=== PATIENT | male | born 1960 | race Caucasian/White ===

== ENCOUNTER 2017-03-23 02:30 | Emergency (ER) | payer BC ==
[~2017-03-23] VITALS: Ht 177.8 cm; Wt 100.8 kg
[2017-03-23 02:30] VITALS: Ht 177.8 cm; Wt 100.8 kg
[~2017-03-23 02:30] MED LIST: BUPR300T33; DICL500C PO; FLUT15.88; LORA10CA3 PO; LORA1TAB3 PO; LOVA20TA PO; OMEP20CA81; PRED20TA PO; SILD50TA PO
--- OUTSIDE RECORDS SUMMARY | 2017-03-23 02:34 | XMS REPORT | Continuity of Care Document ---
Author Author [facility] Organization [facility] Address Unknown Phone Unavailable Care Team Providers Care Spool Fixer Name Role Phone BATSHEVA NUÑEZ MD Primary Care Physician [phone] Insurance Providers Guarantor Efrain Valladares Address [address] [place] [address] Email [email or web address] Policy Number [id number] Subscriber's Name Efrain Valladares Relationship 18 Self Group Number [id number] Chief Complaint and Reason for Visit Chief Complaint Skin Rash/Abscess/Injury Reason for Visit [id number] Problems Active Problems Medical Problem Onset Date Status Ventral hernia, recurrent 10/22/2014 Acute Past Problems Medical Problem Onset Date Hand dermatitis Unknown Medications Current Home Medications Medication Dose Units Route Directions Days Qty Instructions Start Date Bupropion Hcl (Wellbutrin Xl) 300 Mg Tab.sr.24h Daily 10/22 Dicloxacillin Sodium 500 Mg Capsule 1 Cap Oral Four Times Daily 10 Days [address] Pacheco Partida [employer] [facility] [address] [phone] 03/18/17 Fluticasone Propionate 15.8 Ml [place].susp 03/18/17 Loratadine (Claritin) 10 Mg Capsule 1 Cap Oral Daily 10/21/14 Lorazepam 1 Mg Tablet 1 Mg Oral As Needed 10 10/21/14 Lovastatin (Mevacor) 20 Mg Tablet 20 Mg Oral Bedtime Take 1 tablet, by mouth, one time a day (at bedtime). 10/21/14 Omeprazole (Prilosec) 20 Mg Capsule. Daily 10/22/10 Prednisone 20 Mg Tablet 20 Mg Oral Give With Breakfast 36 Tablet Take 3 tablets daily for 6 days then 2 daily for 6 days, 1 daily for [address] Pacheco Partida [employer] [facility] [address] [phone] 03/18/17 Sildenafil Citrate (Viagra) 50 Mg Tablet 50 Mg Oral As Needed Past Home Medications Medication Directions Ordered Status Oxybutynin Chloride (Ditropan) 5 Mg Tablet, Three Times A Day 10/22/10 Discontinued Social History Social History Problem Response Recorded Date/Time Onset Date Status Hx Substance Use No 09/11/2014 11:29am Not Applicable Not Applicable Hx Alcohol Use Y RARELY 10/22/2014 10:36am Not Applicable Not Applicable Has the pt used tobacco in the last 12 months No 10/22/2014 10:36am Not Applicable Not Applicable Hospital Discharge Instructions No hospital discharge instructions. Plan of Care Discharge Date 03/18/17 10:08am Disposition 01 DISCHARGED HOME, SELF-CARE Condition at Discharge Stable Instructions/Education Provided Dermatitis (ED) Prescriptions See Medication Section Referrals BATSHEVA NUÑEZ MD Address: [address] [place] [address] [place] [phone] Additional Instructions/Education Take dicloxacillin as directed. Take prednisone taper as directed. Keep the area clean and dry for now. Follow with Dr. Nuñez in the next week for possible referral to dermatology. Functional Status No functional status results. Allergies, Adverse Reactions, Alerts No known allergies. Immunizations Query Response on File Recorded Date/Time Hx Influenza Vaccination Y AUG 2014 10/22/14 10:36am Hx Pneumococcal Vaccination Y 201110/22/14 10:36am Hx Influenza Vaccination Y AUG 2014 10/22/14 10:36am Influenza Vaccine Hx AUG 2016 03/18/17 9:38am Tetanus Diptheria Vaccine History UP TO DATE 03/18/17 9:38am Vital Signs Acute Vital Signs Vital Response Date/Time Temperature (Fahrenheit) 97.0 deg F (96.8 - 99.1) 03/18/2017 9:34am Temperature (Calculated Celsius) 36.85682 degrees C (36.0 - 37.3) 03/18/2017 9:34am Pulse Rate (adult) 61 bpm (60 - 100) 03/18/2017 9:34am Respiratory Rate 18 breaths/min (10 - 20) 03/18/2017 9:34am O2 Sat by Pulse Oximetry 98 % (90 - 100) 03/18/2017 9:34am Blood Pressure 145/89 mm Hg 03/18/2017 9:34am Height (Inches) 70.00 inches 03/18/2017 9:34am Weight (Kilograms) 101.900 kg 03/18/2017 9:34am Body Mass Index (BMI) 32.0 03/18/2017 9:34am Results No known relevant diagnostic tests, laboratory data and/or discharge summary. Procedures No known history of procedures. Encounters Encounter Location Arrival/Admit Date Discharge/Depart Date Attending Provider Departed Emergency Room [facility] 03/18/17 9:31am 03/18/17 10: 08am FRANNY MORALES APRN Recent Diagnosis
--- OUTSIDE RECORDS SUMMARY | 2017-03-23 02:35 | XMS REPORT | Continuity of Care Document ---
Author Author [facility] Organization [facility] Address Unknown Phone Unavailable Allergies Active Description Code Type Severity Reaction Onset Reported/Identified Relationship to Patient Clinical Status Yes No Known Medication Allergies NKMA N/A N/A 05/27/2014 Yes No Known Medication Allergies NKMA N/A N/A 05/27/2014 Medications Problems Date Dx Coded Attending Type Code Diagnosis Diagnosed By 03/16/2015 Final 592.0 CALCULUS OF KIDNEY 03/16/2015 Reason 789.09 ABDOMINAL PAIN, OTHER SPECIFIED SITE; MULTIPLE SITES Procedures Results Test Result Range CBC With Platelet and Differential - 08/21/16 10:45 Absolute Basophils 0.19 10*3 0.00-0.20 Absolute Eosinophils 0.46 10*3 0.00-0.50 Absolute Lymphocytes 2.56 10*3 0.80-3.30 Absolute Monocytes 0.85 10*3 0.30-1.00 Absolute Neutrophils 2.91 10*3 1.90-7.00 Basophils 3 % 0-2 Eosinophils 7 % 0-4 HCT 46.4 % 42.0-52.0 HGB 15.0 g/dL 14.0-18.0 Immature Granulocytes 0.4 % 0.0-1.0 Lymphocytes 37 % 20-46 MCH 26.4 pg 27.0-32.0 MCHC 32.3 g/dL 32.0-36.0 MCV 81.5 fL 82.0-99.0 Monocytes 12 % 4-11 MPV 10.9 fL 8.8-14.8 Neutrophils 42 % 51-75 Platelet Count 314 K/uL 150-400 RBC 5.69 10*6/uL 4.60-6.20 RDW 15.3 % 11.5-14.5 WBC 7.0 K/uL 4.8-10.8 Comprehensive Metabolic Panel (CMP) - 08/21/16 10:45 Albumin 4.2 g/dL 3.5-5.0 Alkaline Phosphatase 93 U/L 40-150 ALT (SGPT) 60 U/L 0-55 Anion Gap 7 NA 3-20 AST (SGOT) 43 U/L 5-34 Bilirubin Total 0.5 mg/dL 0.2-1.2 BUN 14 mg/dL 8-26 Calcium 9.7 mg/dL 8.9-10.5 Chloride 107 mEq/L 99-111 CO2 25 mEq/L 23-31 Creatinine 0.92 mg/dL 0.72-1.25 Globulin 2.4 g/dL 1.8-4.0 Glucose 101 mg/dL 70-99 Potassium 4.8 mEq/L 3.5-5.2 Protein 6.6 g/dL 6.1-7.7 Sodium 139 mEq/L 135-144 Lipid Panel - 08/21/16 10:45 Cardiac Risk 4.3 0.0-5.7 Cholesterol 169 mg/dL 0-199 HDL Cholesterol 39 mg/dL 40-84 LDL Cholesterol 100 mg/dL 0-130 Triglycerides 151 mg/dL 0-149 VLDL Cholesterol 30 mg/dL 0-28 Uric Acid - 08/21/16 10:45 Uric Acid 5.2 mg/dL 3.5-7.2 eGFR - 08/21/16 10:45 eGFR >60 mL/min >60 Hemoglobin A1C - 08/21/16 10:45 Hemoglobin A1C 6.4 % 4.1-5.6 Estimated Average Glucose - 08/21/16 10:45 Estimated Average Glucose 137.0 mg/dL Urinalysis with reflex microscopic - 08/21/16 10:47 Appearance Clear NA Bilirubin Negative NA Negative Blood Negative NA Negative Color Yellow NA Glucose, Urine Negative Negative Ketones Negative Negative Leukocyte Esterase Negative NA Negative Nitrites Negative NA Negative pH 5.5 NA 5.0-8.0 Protein Negative Negative Specific [place] 1.023 NA 1.003-1.030 UA Collection type Voided NA Urobilinogen 1.0 mg/dL <1.0 Encounters ACCT No. Visit Date/Time Discharge Status Pt. Type Provider Facility Loc./Unit Complaint [id number] 10/10/2013 10:33:00 10/10/2013 23 :59:59 CLS Outpatient
--- OUTSIDE RECORDS SUMMARY | 2017-03-23 02:35 | XMS REPORT | Continuity of Care Document ---
Author Author [facility] Organization [facility] Address Unknown Phone Unavailable Support Name Relationship Address Phone BATSHEVA NUÑEZ MD Caregiver [address] [place] [address] [place] [address] [phone] CATALINA HOYOS FACS, MD Caregiver [address] [place] [address] [place] [address] [phone] NEAL VALLADARES Next Of Kin [address] [place] [address] Insurance Providers Payer Name Policy Number Subscriber Name Relationship [facility] [id number] Efrain Valladares 16 Self Advance Directives Directive Response Recorded Date/Time Dr Arana Resuscitation Status Full Code 09/11/14 4:21pm Problems No known problems or medical conditions. Medications Medication Dose Route Sig Days/Qty Instructions Order Date Discontinued Date Status Bupropion Hcl DAILY 10/22/10 Active Sennosides TWICE A DAY 10/22/10 Active Oxybutynin Chloride THREE TIMES A DAY 10/22/10 09/11/14 Discontinued Omeprazole DAILY 10/22/10 Active Simvastatin DAILY 10/22/10 Active Social History Social History Problem Response Recorded Date/Time Smoking Status Never smoker 09/11/2014 11:29am Chewing Tobacco Status No 09/11/2014 11:29am Hx Substance Use No 09/11/2014 11:29am Hx Alcohol Use Y MODERATE 09/11/2014 11:29am Has the pt used tobacco in the last 12 months No 09/11/2014 11:29am Hospital Discharge Instructions No hospital discharge instructions. Plan of Care No plan of care. Functional Status No functional status results. Allergies, Adverse Reactions, Alerts Allergen Type Severity Reaction Status Last Updated No Known Allergies Active 10/22/10 Immunizations Name Given Type Hx Influenza Vaccination Y AUGUST 2014 Historical Hx Pneumococcal Vaccination No Historical Hx Influenza Vaccination Y AUGUST 2014 Historical Vital Signs Acute Vital Signs Vital Response Date/Time Temperature (Fahrenheit) 97.3 deg F (96.8 - 99.1) Temperature (Calculated Celsius) 36.00392 degrees C (36.0 - 37.3) Temperature Source Temporal Pulse Rate (adult) 64 bpm (60 - 100) Respiratory Rate 16 breaths/min (10 - 20) Oxygen Delivery Method Room Air Blood Pressure 127/71 mm Hg Blood Pressure Source Automatic Cuff Height 5 ft 10 in Weight 212 lb Body Mass Index 30.0 kg/m^2 Results No known relevant diagnostic tests, laboratory data and/or discharge summary. Procedures Procedure Status Date Provider(s) Colonoscopy completed 09/14/14 CATALINA HOYOS MD, FACS, CWS
--- OUTSIDE RECORDS SUMMARY | 2017-03-23 02:35 | XMS REPORT | Continuity of Care Document ---
Author Author [facility] Organization [facility] Address Unknown Phone Unavailable Support Name Relationship Address Phone BATSHEVA NUÑEZ MD Caregiver [address] [place] [address] [place] [address] [phone] CATALINA HOYOS FACSS Caregiver [address] [place] [address] [place] [address] [phone] NEAL VALLADARES Next Of Kin [address] [place] [address] Insurance Providers Payer Name Policy Number Subscriber Name Relationship [facility] [id number] Efrain Valladares 18 Self Advance Directives Directive Response Recorded Date/Time Dr Arana Resuscitation Status Full Code 10/21/14 4:09pm Resuscitation Documents on File No 10/22/14 10:32am Problems Medical Problems Problem Onset Date Status Ventral hernia, recurrent 10/22/2014 Active Medications Medication Dose Route Sig Days/Qty Instructions Order Date Discontinued Date Status Bupropion Hcl DAILY 10/22/10 Active Oxybutynin Chloride THREE TIMES A DAY 10/22/10 09/11/14 Discontinued Omeprazole DAILY 10/22/10 Active Lorazepam 1 Mg PO NEEDED 10 Qty 10/21/14 Active Loratadine 1 Cap PO DAILY 10/21/14 Active Lovastatin 20 Mg PO BEDTIME Take 1 tablet, by mouth, one time a day (at bedtime). 10/21/14 Active Triamcinolone Acetonide 2 [place] EA NOSTRIL DAILY 10/21/14 Active Sildenafil Citrate 50 Mg PO NEEDED 10/21/14 Active Hydrocodone/Acetaminophen 1-2 Tab PO EVERY 5 HOURS PRN PAIN 10 Qty Active Social History Social History Problem Response Recorded Date/Time Hx Substance Use No 09/11/2014 11:29am Hx Alcohol Use Y RARELY 10/22/2014 10:36am Has the pt used tobacco in the last 12 months No 10/22/2014 10:36am Query Response Start Date Stop Date Smoking Status Never smoker Hospital Discharge Instructions No hospital discharge instructions. Plan of Care No plan of care. Functional Status Query Response Date Recorded Physical Hygiene Self October 23, 2014 9:16am Disabilities None October 23, 2014 9:16am Devices Used Glasses October 23, 2014 9:16am Dressing Self October 23, 2014 9:16am Ambulation Self October 23, 2014 9:16am Diet Self October 23, 2014 9:16am Mental Status Alert Oriented October 23, 2014 9:16am Disabilities None October 23, 2014 9:16am Devices Used Glasses October 23, 2014 9:16am Physical Hygiene Self October 23, 2014 9:16am Dressing Self October 23, 2014 9:16am Ambulation Self October 23, 2014 9:16am Diet Self October 23, 2014 9:16am Allergies, Adverse Reactions, Alerts Allergen Type Severity Reaction Status Last Updated No Known Allergies Active 10/22/10 Immunizations Name Given Type Hx Influenza Vaccination Y AUG 2014 Historical Hx Pneumococcal Vaccination 2011 Historical Hx Influenza Vaccination Y AUG 2014 Historical Vital Signs Acute Vital Signs Vital Response Date/Time Temperature (Fahrenheit) 99.2 deg F (96.8 - 99.1) Temperature (Calculated Celsius) 37.67910 degrees C (36.0 - 37.3) Temperature Source Temporal Pulse Rate (adult) 69 bpm (60 - 100) Respiratory Rate 16 breaths/min (10 - 20) Height 5 ft 10 in Weight 214 lb Body Mass Index 30.0 kg/m^2 Results Test Source Date Result Interp. Ref. Range Comments Alanine Aminotransferase (ALT/SGPT) October 22, 2014 10:35am 57 U/L N 21-72 Aspartate Amino Transf (AST/SGOT) October 22, 2014 10:35am 33 U/L N 17- 59 Albumin/Globulin Ratio October 22, 2014 10:35am 1.5 RATIO N 1.1-2.2 Globulin October 22, 2014 10:35am 3.0 G/DL N 2.4-3.6 Albumin October 22, 2014 10:35am 4.6 G/DL N 3.5-5.0 Total Protein October 22, 2014 10:35am 7.6 G/DL N 6.3-8.2 Alkaline Phosphatase October 22, 2014 10:35am 104 U/L N 38-126 Total Bilirubin October 22, 2014 10:35am 0.80 MG/DL N 0.20-1.30 Calcium Level October 22, 2014 10:35am 10.0 MG/DL N 8.4-10.2 Calculated Osmolality October 22, 2014 10:35am 275 MOSM/KG N 261-280 Glucose Level October 22, 2014 10:35am 109 MG/DL N 75-110 Glomerular Filtration Rate Calc October 22, 2014 10:35am 63 - BUN/Creatinine Ratio October 22, 2014 10:35am 9 RATIO N 6-26 Creatinine October 22, 2014 10:35am 1.2 MG/DL N 0.8-1.5 Blood Urea Nitrogen October 22, 2014 10:35am 11.0 MG/DL N 9-20 Anion Gap October 22, 2014 10:35am 12 MEQ/L N 5-15 Carbon Dioxide Level October 22, 2014 10:35am 28 MEQ/L N 22-30 Chloride Level October 22, 2014 10:35am 103 MEQ/L N 98-107 Potassium Level October 22, 2014 10:35am 4.6 MEQ/L N 3.6-5 Sodium Level October 22, 2014 10:35am 143 MEQ/L N 134-144 Turbidity October 22, 2014 10:35am < 20 0-20 Chemistry Specimen Hemolysis October 22, 2014 10:35am < 15 0-25 0-25 : No Hemolysis.26-70: Slight Hemolysis - can falsely elevate K and Urine Protein. 71-285: Moderate Hemolysis - can falsely elevate K, Troponin I, CA 19-9, PTH, CSF GLucose, and Urine Protein, and can falsely decrease Phenytoin. 286-999: Gross Hemolysis - can falsely elevate K, Troponin I, CA 19-9, PTH, CSF Glucose, and Urine Protine, and can falsely decrease Phenytoin. Recommend specimen recollection. Icterus Index October 22, 2014 10:35am < 2 0-7 Immature Granulocyte # (Auto) October 22, 2014 10:35am 0.01 T/MM3 N 0.00-0.03 COMMENT SCU WILL CALL Basophils # (Auto) October 22, 2014 10:35am 0.3 T/MM3 H 0-0.2 COMMENT SCU WILL CALL Eosinophils # (Auto) October 22, 2014 10:35am 0.5 T/MM3 N 0-0.5 COMMENT SCU WILL CALL Monocytes # (Auto) October 22, 2014 10:35am 0.7 T/MM3 N 0-0.8 COMMENT SCU WILL CALL Lymphocytes # (Auto) October 22, 2014 10:35am 2.3 T/MM3 N 1-4.8 COMMENT SCU WILL CALL Neutrophils # (Auto) October 22, 2014 10:35am 3.1 T/MM3 N 1.8-7.7 COMMENT SCU WILL CALL Immature Granulocyte % (Auto) October 22, 2014 10:35am 0.1 % N 0.0-0.5 COMMENT SCU WILL CALL Basophils (%) (Auto) October 22, 2014 10:35am 3.9 % H 0-2 COMMENT SCU WILL CALL Eosinophils (%) (Auto) October 22, 2014 10:35am 7.1 % H 0-4 COMMENT SCU WILL CALL Monocytes (%) (Auto) October 22, 2014 10:35am 9.9 % H 0-9.0 COMMENT SCU WILL CALL Lymphocytes (%) (Auto) October 22, 2014 10:35am 33.5 % N 23-45 COMMENT SCU WILL CALL Neutrophils (%) (Auto) October 22, 2014 10:35am 45.5 % N 33-66 COMMENT SCU WILL CALL Mean Platelet Volume October 22, 2014 10:35am 10.1 UM3 N 9.4-12.4 COMMENT SCU WILL CALL Platelet Count October 22, 2014 10:35am 295 T/MM3 N 130-400 COMMENT SCU WILL CALL RDW Standard Deviation October 22, 2014 10:35am 44.7 FL N 36.9-50.2 COMMENT SCU WILL CALL Mean Corpuscular Hemoglobin Concent October 22, 2014 10:35am 32.0 GM/DL N 31-37 COMMENT SCU WILL CALL Mean Corpuscular Hemoglobin October 22, 2014 10:35am 25.7 UUG L 26-34 COMMENT SCU WILL CALL Mean Corpuscular Volume October 22, 2014 10:35am 80.3 UM3 N 80-100 COMMENT SCU WILL CALL Hematocrit October 22, 2014 10:35am 47.2 % N 41-53 COMMENT SCU WILL CALL Hemoglobin October 22, 2014 10:35am 15.1 GM/DL N 13.5-17.5 COMMENT SCU WILL CALL Red Blood Count October 22, 2014 10:35am 5.88 M/MM3 N 4.50-5.90 COMMENT SCU WILL CALL White Blood Count October 22, 2014 10:35am 6.9 T/MM3 N 4.5-11.0 COMMENT SCU WILL CALL Procedures Procedure Status Date Provider(s) DIAGNOSTIC COLONOSCOPY completed 09/14/14 CATALINA HOYOS MD, FACS, CWS [id number]"RINGERS LACTATE INFUSION, UP TO 1000 CC" completed 09/14/14 Laparoscopic repair of ventral hernia completed 10/22/14 CATALINA HOYOS MD , FACS, CWS
--- NOTE | 2017-03-23 02:50 | ERPDOC ---
Departure Disposition Decision Date: March 23, 2017 Disposition Decision Time: 04:00 Disposition: 01 DISCHARGED HOME, SELF-CARE Impression Impression Impression: Primary Impression: GERD (gastroesophageal reflux disease) Esophagitis presence: with esophagitis Qualified Codes: K21.0 - Gastro- esophageal reflux disease with esophagitis Severity: Moderate Condition: Improved Seen By: Physician only Referrals: BATSHEVA NUÑEZ MD (PCP/Family) Follow-up if not improving for further recommendations Patient Instructions: Gastroesophageal Reflux Disease (ED) Problems/Meds/Labs Reviewed?: Yes Medications reviewed and manag: Yes Additional Instructions: I am changing your prednisone taper: Take 2 pills each day for the next 3 days, then Take 1 pill each day for the next 3 days, then Stop Recommend ranitidine 150 mg twice a day for the next 3 days, then as needed We'll add Carafate 1 g by mouth every before meals and daily at bedtime 10 days Continue the antibiotic until you're finished Continue your other medications as prescribed Follow up care ordered?: Yes Mental Status: Alert, Oriented Scripts Sucralfate (Carafate) 1 Gm Tablet 1 G PO ACHS for 10 Days, TAB Take 1 tablet, by mouth, 4 times a day (Before EACH meal and at BEDTIME). Prov: JUSTIN BAGLEY MD 03/23/17 HPI - General Medical General Chief Complaint: Acute Medical Problem Stated Complaint: HEART BURN Time Seen by Provider: 02:50 Source: patient, family Exam Limitations: no limitations HPI - General Medical Initial Comments Patient is a 57-year-old male, presents emergency room for evaluation heartburn. Patient does have a history of heartburn past, does take daily Prilosec. Patient was recently started on steroids for dermatitis on the hand, also had a shot of whiskey this evening. Approximately 1 hour prior to arrival patient with severe heartburn with some radiation to the left side of his chest. Patient had some mild nausea and no diaphoresis vomiting. Patient's pain became 8/10 so patient decided ER for evaluation. Occurred At: home Onset: Rapid Duration: 1 hr Pain Scale: Now & Worst: 8/10 Allergies: Coded Allergies: No Known Allergies (Unverified , 03/18/17) Past History Past Medical History Metabolic: cancer, hypercholesterolemia, hypertension ("borderline") Cardiac: DENIES: A-fib, CAD, CHF, [place] Respiratory: DENIES: COPD, asthma GI: GERD Surgical History General: gallbladder, other Reproductive/: prostatectomy Vaccines Hx Influenza Vaccination: Yes (AUG 2014) Hx Pneumococcal Vaccination: Yes (2011) Social History Smoking Status: Former smoker # of Packs/Tins per Day: 0.5 # of Years: 6 Substance Use Type: does not use Alcohol Intake: occasionally Review of Systems Constitutional Constitutional: DENIES: appetite decrease, chills, dizziness, fever, weakness Eyes Vision: DENIES: loss of visual funez ENMT Sinuses: DENIES: congestion, rhinorrhea Mouth/Throat: DENIES: scratchy throat, sore throat Cardiovascular Cardiac: DENIES: chest pain, dyspnea on exertion Pulmonary Respiratory: DENIES: cough, dyspnea, sputum, tachypnea GI Upper Abdomen: nausea, pain, DENIES: vomiting Lower Abdomen: DENIES: constipation, diarrhea, pain General: DENIES: frequency, urgency Musculoskeletal General: DENIES: cramps, pain, weakness Integumentary Skin: DENIES: color change, itching, rash Endocrine Endocrine: DENIES: heat/cold intolerance Hematologic/Lymphatic Hematologic/Lymphatic: DENIES: anemia Physical Exam General General Nourishment: well nourished, well developed, obese General Body Habitus: well groomed Vitals and Pain First Documented Vital Signs Date Time Temp Pulse Resp B/P Pulse Ox O2 Delivery O2 Flow Rate FiO2 03/23/17 02:30 98.4 58 20 121/68 95 Room Air Weight: Kilograms: Height (feet): 5 Height (inches): 70.00 Triage Pain Scale: RN VS reviewed by Provider: Yes Eyes (brief) Eyes Brief: found: EOMI ENMT (brief) ENMT Brief: FOUND: mucosa moist, normal dentition, NOT FOUND: nasal erythema, pharnyx erythema, tonsillar deviation Neck (brief) Neck: NOT FOUND: adenopathy, spasm, tenderness Respiratory (brief) Respiratory: FOUND: clear all funez, equal bilaterally, NOT FOUND: rales, wheezes Cardiovascular (brief) Cardiac: FOUND: regular rate, regular rhythm Capillary Refill: <2 sec Abdomen Inspection: NOT FOUND: distention Palpation: FOUND: soft, NOT FOUND: Obturator sign, Psoas sign, hepatomegaly, involuntary guarding, splenomegaly, tender, voluntary guarding Auscultation: FOUND: normoactive Lymphatic (brief) Lymphatic Brief: NOT FOUND: adenopathy Musculoskeletal (brief) Musculoskeletal Brief: NOT FOUND: spasm, tenderness Integumentary (brief) Integumentary Brief: FOUND: dry, pink, warm, NOT FOUND: rash Neurologic (brief) Neurological Brief: FOUND: CN w/o gross def to obs, motor-no gross deficits, sensory-no gross deficits Psychiatric (brief) Psychiatric Brief: FOUND: alert, oriented Differential Diagnoses Considering: Acute AK, Hypo/Hyperglycemia, Hypo/Hyperkalemia, Hypo/ Hypernatremia, Other (GERD, gastritis, pneumonia) Progress Results/Orders Orders Procedure Category Date Status Time EKG EKG 03/23/17 Logged 02:32 Cbc W/Auto LAB 03/23/17 Complete Diff-Reflex Manual 02:55 Cmp - Comprehensive LAB 03/23/17 Complete Metabolic 02:55 Probnp LAB 03/23/17 Complete 02:55 Troponin I W LAB 03/23/17 Complete Hemolysis Index 02:55 Chest 1 View RAD 03/23/17 Taken 02:55 Lipase LAB 03/23/17 Complete 02:55 G.I. Cocktail PHA 03/23/17 Complete (/Maalox/Lidocaine 03:00 Famotidine (Pepcid) PHA 03/23/17 Complete 03:30 Lab Results Laboratory Tests Test 03/23/17 03:03 White Blood Count 13.7T/MM3 Red Blood Count 5.41M/MM3 Hemoglobin 15.1GM/DL Hematocrit 44.6% Mean Corpuscular Volume 82.4UM3 Mean Corpuscular Hemoglobin 27.9UUG Mean Corpuscular Hemoglobin Concent 33.9GM/DL RDW Standard Deviation 47.3FL Platelet Count 301T/MM3 Mean Platelet Volume 10.1UM3 Immature Granulocyte % (Auto) 0.8% Neutrophils (%) (Auto) 66.7% Lymphocytes (%) (Auto) 22.0% Monocytes (%) (Auto) 9.0% Eosinophils (%) (Auto) 0.6% Basophils (%) (Auto) 0.9% Absolute Immature Granulocyte (auto 0.11T/MM3 Absolute Neutrophils (auto) 9.2T/MM3 Absolute Lymphocytes (auto) 3.0T/MM3 Absolute Monocytes (auto) 1.2T/MM3 Absolute Eosinophils (auto) 0.1T/MM3 Absolute Basophils (auto) 0.1T/MM3 Turbidity < 20 Sodium Level 144MEQ/L Potassium Level 4.2MEQ/L Chloride Level 104MEQ/L Carbon Dioxide Level 25MEQ/L Anion Gap 15MEQ/L Blood Urea Nitrogen 26.0MG/DL Creatinine 0.8MG/DL Glomerular Filtration Rate Calc 99 BUN/Creatinine Ratio 33RATIO Glucose Level 186MG/DL Calculated Osmolality 287MOSM/KG Calcium Level 9.5MG/DL Total Bilirubin 0.40MG/DL Icterus Index < 2 Aspartate Amino Transf (AST/SGOT) 24U/L Alanine Aminotransferase (ALT/SGPT) 56U/L Alkaline Phosphatase 70U/L Troponin I < 0.012ng/ml DS-Glo-J-Type Natriuretic Peptide 33PG/ML Total Protein 7.0G/DL Albumin 4.4G/DL Globulin 2.6G/DL Albumin/Globulin Ratio 1.7RATIO Lipase 61U/L Chemistry Specimen Hemolysis < 15 Medications Current ED Medications Pharmacy Profile Note (/Maalox/ Lidocaine Soln) 30 ml O ONCE PO Last administered on 03/23/17 03:04; Start 03/23/17 at 03:00; Stop 03/23/17 at 03:01 ; Status DC Famotidine (Pepcid) 40 mg O ONCE PO Last administered on 03/23/17 03:31; Start 03/23/17 at 03:30; Stop 03/23/17 at 03:31; Status DC Progress Progress Patient's laboratories EKG a chest x-ray are all noncontributory. Patient's troponin is undetectable, patient's symptoms improved with ranitidine and GI cocktail. We'll diagnose patient with gastritis, will reviewed patient's prednisone taper, start Carafate, continue the Prilosec at home. If not improving follow-up with primary medical physician for reevaluation and further recommendation EKG EKG : Rate: 60-100 Rhythm: sinus [place]: normal QRS: normal Intervals: normal ST/T: non-specific changes Interpreted by: signing physician Xray Xray : Xray: CXR Portable Interpretation: Normal, Interpreted by Me (no acute cardiopulmonary findings ) JUSTIN BAGLEY MD March 23, 2017 02:50
[2017-03-23] MEDS ORDERED: G.I. COCKTAIL 30ml PO ONE (03:00)
--- NOTE | 2017-03-23 03:00 | NUR ---
PORABLE CXR COMPLETED IN ROOM
[2017-03-23 03:10] LABS: BASOPHILS # (AUTO) 0.1 T/MM3 (0-0.2); BASOPHILS % (AUTO) 0.9 % (0-2); EOSINOPHILS # (AUTO) 0.1 T/MM3 (0-0.5); EOSINOPHILS % (AUTO) 0.6 % (0-4); HCT - HEMATOCRIT 44.6 % (41-53); HGB - HEMOGLOBIN 15.1 GM/DL (13.5-17.5); IMMATURE GRANULOCYTE # (AUTO) 0.11 T/MM3 (0.00-0.03); IMMATURE GRANULOCYTE % (AUTO) 0.8 % (0.0-0.5); MEAN CORPUSCULAR HGB 27.9 UUG (26-34); MEAN CORPUSCULAR HGB CONC(MCHC 33.9 GM/DL (31-37); MEAN CORPUSCULAR VOLUME 82.4 UM3 (80-100); MEAN PLATELET VOLUME 10.1 UM3 (9.4-12.4); MONOCYTES # (AUTO) 1.2 T/MM3 (0-0.8); NEUTROPHILS #(AUTO)-ABSOLUTE 9.2 T/MM3 (1.8-7.7); NEUTROPHILS % (AUTO) 66.7 % (33-66); RED BLOOD COUNT 5.41 M/MM3 (4.50-5.90); WBC - WHITE BLOOD COUNT 13.7 T/MM3 (4.5-11.0)
--- OUTSIDE RECORDS SUMMARY | 2017-03-23 03:16 | XMS REPORT | Continuity of Care Document ---
Author Author [facility] Organization [facility] Address Unknown Phone Unavailable Support Name Relationship Address Phone BATSHEVA NUÑEZ MD Caregiver [address] [place] [address] [place] [address] [phone] CATALINA HOYOS FACSS Caregiver [address] [place] [address] [place] [address] [phone] NEAL VALLADARES Next Of Kin [address] [place] [address] Insurance Providers Payer Name Policy Number Subscriber Name Relationship [facility] [id number] Efrain Valladares 16 Self Advance Directives Directive [...] (at bedtime). 10/21/14 Active Triamcinolone Acetonide 2 Allen EA NOSTRIL DAILY 10/21/14 Active Sildenafil Citrate [...] F (96.8 - 99.1) Temperature (Calculated Celsius) 37.94581 degrees C (36.0 - 37.3) Temperature Source [...] completed 09/14/14 CATALINA HOYOS MD, FACS, CWS [id number]"RINGERS LACTATE INFUSION, UP TO 1000 CC" completed 09/14/14 Laparoscopic repair of ventral hernia completed 10/22/14 CATALINA HOYOS MD , FACS, CWS
--- OUTSIDE RECORDS SUMMARY | 2017-03-23 03:16 | XMS REPORT | Continuity of Care Document ---
Author Author [facility] Organization [facility] Address Unknown Phone Unavailable Allergies [...] 5.5 NA 5.0-8.0 Protein Negative Negative Specific [place] 1.023 NA 1.003-1.030 UA Collection type Voided NA Urobilinogen 1.0 mg/dL <1.0 Encounters ACCT No. Visit Date/Time Discharge Status Pt. Type Provider Facility Loc./Unit Complaint [id number] 10/10/2013 10:33:00 10/10/2013 23 :59:59 CLS Outpatient
--- OUTSIDE RECORDS SUMMARY | 2017-03-23 03:17 | XMS REPORT | Continuity of Care Document ---
Author Author [facility] Organization [facility] Address Unknown Phone Unavailable Support Name Relationship Address Phone BATSHEVA NUÑEZ MD Caregiver [address] [place] [address] [place] [address] [phone] CATALINA HOYOS FACS, MD Caregiver [address] [place] [address] [place] [address] [phone] NEAL VALLADARES Next Of Kin [address] [place] [address] Insurance Providers Payer Name Policy Number Subscriber Name Relationship [facility] [id number] Efrain Valladares 16 Self Advance Directives Directive [...] F (96.8 - 99.1) Temperature (Calculated Celsius) 36.13895 degrees C (36.0 - 37.3) Temperature Source [...]
[2017-03-23 03:20] LABS: ALBUMIN 4.4 G/DL (3.5-5.0); ALBUMIN/GLOBULIN RATIO 1.7 RATIO (1.1-2.2); ALKALINE PHOSPHATASE 70 U/L (38-126); ALT (SGPT) 56 U/L (21-72); ANION GAP 15 MEQ/L (5-15); AST (SGOT) 24 U/L (17-59); BUN/CREATININE RATIO 33 RATIO (6-26); CALCIUM 9.5 MG/DL (8.4-10.2); CHLORIDE 104 MEQ/L (98-107); CO2 - CARBON DIOXIDE 25 MEQ/L (22-30); CREATININE 0.8 MG/DL (0.8-1.5); GLOMERULAR FILTRATION RATE 99; GLUCOSE 186 MG/DL (75-110); LIPASE 61 U/L (23-300); POTASSIUM 4.2 MEQ/L (3.6-5); SODIUM 144 MEQ/L (134-144)
[2017-03-23] MEDS ORDERED: FAMOTIDINE 20 MG TABLET PO ONE (03:30)
[2017-03-23 03:33] LABS: PROBNP 33 PG/ML (0-175)
[2017-03-23 04:10] VITALS: BP 135/75; PULSE 58; RESP 18; TEMP 97.8; O2SAT 96
[2017-03-23] MEDS ORDERED: SUCR1TAB20 PO (04:10)
--- NOTE | 2017-03-23 04:10 | NUR ---
DEPART PT IS GIVEN DISMISSAL INSTRUCTIONS WITH VERBAL UNDERSTANDING. PT LEAVES WITH HIS TO ED REGISTRATION DESK.
--- NOTE | 2017-03-23 08:32 | DI ---
Indication: ITS.REASON: chest discomfort PROCEDURE: CHEST 1 VIEW: Encounter: Initial Comparison: None FINDINGS: The lungs are clear. There is no abnormal airspace opacity, pleural effusion or pneumothorax identified. The heart size, pulmonary vasculature and mediastinum are within normal limits. No significant skeletal abnormality is seen. IMPRESSION: No acute cardiopulmonary abnormality. .
== END 2017-03-23 04:10 | disposition home or self-care (01) ==
LOC: ED 02:30
DX: K21.0 Gastro-esophageal reflux disease with esophagitis (principal)
CPT/HCPCS: 36415; 71010; 80053; 83690; 83880; 84484; 85025; 93005; 99283; J7999